=== PATIENT | male | born 1955 | race Two or more races ===

== ENCOUNTER 2022-05-02 18:51 | Emergency (ER) | payer MEDICARE, MEDICAID ==
[~2022-05-02] VITALS: Ht 175.3 cm; Wt 83.8 kg
[2022-05-02 19:41] VITALS: BP 107/56
[2022-05-02] MEDS ORDERED: AMOX500C2 PO (20:48)
== END 2022-05-03 03:23 | disposition home or self-care (01) ==
LOC: ER 18:54
DX: H66.92 Otitis media, unspecified, left ear (principal); I10 Essential (primary) hypertension; E11.9 Type 2 diabetes mellitus without complications; E78.5 Hyperlipidemia, unspecified

== ENCOUNTER 2024-03-15 14:19 | Emergency (ER) | payer MEDICARE, MEDICAID ==
[~2024-03-15] VITALS: Ht 172.7 cm; Wt 81.8 kg
[~2024-03-15 14:19] MED LIST: AMOX500C2 PO
[2024-03-15 14:20] VITALS: BP 164/84; PULSE 101; RESP 16; O2SAT 94
[2024-03-15 16:07] LABS: Basophils # (auto) 0.1 10 ^3/uL (0-0.2); Basophils % (auto) 0.6 % (0.0-2.0); Eosinophils # (auto) 0.1 10 ^3/uL (0-0.8); Eosinophils % (auto) 0.7 % (0.0-7.0); Hematocrit 37.3 % (41.0-53.0); Hemoglobin 12.6 g/dL (13.5-17.5); Lymphocytes # (auto) 1.2 10 ^3/uL (0.4-5.4); Mean Corpuscular Hemoglobin 27.3 pg (28.0-32.0); Mean Corpuscular Hgb Conc. 33.9 g/dL (32.0-36.0); Mean Corpuscular Volume 80.5 fL (80.0-100.0); Monocytes % (auto) 6.3 % (0.0-12.0); Neutrophils # (auto) 14.3 10 ^3/uL (1.6-8.6); Neutrophils % (auto) 85.4 % (37.0-80.0); Nucleated Red Blood Cells % 0.1 %; Platelet Count (auto) 414 10^3/uL (140-450); Red Blood Cells 4.63 10^6/uL (4.5-5.90); Red Cell Distribution Width 13.6 % (11.8-14.3); White Blood Cell 16.7 10^3/uL (4.4-10.8)
[2024-03-15 16:10] LABS: Chloride 105 mmol/L (98-107); Potassium 4.1 mmol/L (3.5-5.1); Sodium 138 mmol/L (136-145)
[2024-03-15 16:11] LABS: Anion Gap 6 (5-15); Carbon Dioxide 27 mmol/L (20-30)
[2024-03-15 16:12] LABS: Calcium 10.1 mg/dL (8.7-10.4)
[2024-03-15 16:16] LABS: BUN/Creatinine Ratio 14.3 (10.0-20.0); Blood Urea Nitrogen 12 mg/dL (9-23); Glucose 101 mg/dL (74-106)
[2024-03-15] MEDS: IOHEXOL 350 MG/ML 100ML IJ ONE (18:32)
[2024-03-15] MEDS ORDERED: KETOROLAC TROMETH 30 MG/ML 1ML VIAL IM ONE (19:30)
== END 2024-03-15 19:37 | disposition left against medical advice (07) ==
LOC: ER 14:19 → EDBD 14:19 → ER 19:37
DX: R51.9 Headache, unspecified (principal); E11.9 Type 2 diabetes mellitus without complications; E78.5 Hyperlipidemia, unspecified; I10 Essential (primary) hypertension; Z88.1 Allergy status to other antibiotic agents
CPT/HCPCS: 36415; 70450; 70496; 80048; 85025; 99285; J1885; Q9967